=== PATIENT | male | born 1990 | race Caucasian/White ===

== ENCOUNTER 2021-11-23 04:11 | Emergency (ER) | payer SELFPAY ==
[~2021-11-23] VITALS: Ht 167.6 cm; Wt 68.0 kg
== END 2021-11-23 04:34 | disposition home or self-care (01) ==
LOC: ER 04:16
DX: L03.116 Cellulitis of left lower limb (principal); L30.9 Dermatitis, unspecified; F17.210 Nicotine dependence, cigarettes, uncomplicated
CPT/HCPCS: 99282